=== PATIENT | female | born 1995 | race Caucasian/White ===

== ENCOUNTER 2020-11-02 15:58 | Emergency (ER) | payer BC ==
[2020-11-02] MEDS ORDERED: Lidocaine 2% Viscous Solution 15 ML Cup PO ONE (16:39)
[2020-11-02] MEDS ORDERED: Benzocaine 20% Topical Spray UD MUCMEM ONE (16:39)
--- NOTE | 2020-11-02 16:43 | EDM.PDOC ---
ED HPI GENERAL MEDICAL PROBLEM - General Chief Complaint: Skin Complaint Stated Complaint: POSSIBLE ABSCESS ON FACE Time Seen by Provider: 11/02/20 15:59 Source of Information: Reports: Patient History Limitations: Reports: No Limitations - History of Present Illness INITIAL COMMENTS - FREE TEXT/NARRATIVE: HISTORY AND PHYSICAL: History of present illness: Patient is a 24-year-old female presents emergency room today with concern of dental infection that she woke up with this morning. Patient states that she has had prior dental abscess and states that this is similar to her symptoms. Patient states that her wisdom tooth is growing in on the bottom and has been causing complications of the teeth in front of it and states that she just moved to [place] and plans to establish care with the dentist this week. Patient denies any other symptoms or concerns. Patient denies fever, chills, chest pain, shortness of breath, or cough. Denies headache, neck stiff ness, change in vision, syncope, or near syncope. Denies nausea, vomiting, abdominal pain, diarrhea, constipation, or dysuria. Has not noted any blood in urine or stool. Patient has been eating and drinking ap propriately. Review of systems: As per history of present illness and below otherwise all systems reviewed and negative. Past medical history: As per history of present illness and as reviewed below otherwise noncontributory. Surgical history: As per history of present illness and as reviewed below otherwise noncontributory. Social history: See social history for further information Family history: As per history of present illness and as reviewed below otherwise noncontributory. Physical exam: General: Patient is alert, oriented, and in no acute distress. Patient sitting comfortably on exam table. Vitals stable and reviewed by me. HEENT: Tooth #30 is eroded at the gumline with surrounding edema of the gumline without obvious drainable abscess at this time. The adjacent mandible to this tooth is mildly to moderately edematous with pain to palpation of this area. Otherwise, atraumatic, normocephalic, pupils equal and reactive bilaterally, negative for conjunctival pallor or scleral icterus, mucous membranes moist, TMs normal bilaterally, throat clear, neck supple, nontender, trachea midline. No drooling or trismus noted. No meningeal signs. No hot potato voice noted. Lungs: Clear to auscultation, breath sounds equal bilaterally, chest nontender. Heart: S1S2, regular rate and rhythm without overt murmur Abdomen: Soft, nondistended, nontender. Negative for masses or hepatosplenomegaly. Negative for costovertebral tenderness. Pelvis: Stable nontender. Genitourinary: Deferred. Rectal: Deferred. Skin: Intact, warm, dry. No lesions or rashes noted. Extremities: Atraumatic, negative for cords or calf pain. Neurovascular unremarkable. Neuro: Awake, alert, oriented. Cranial nerves II through XII unremarkable. Cerebellum unremarkable. Motor and sensory unremarkable throughout. Exam nonfocal. Notes: Signs and symptoms that were prompt return to the ED thoroughly discussed with patient. Discussed importance for follow-up with a dentist. Voices understanding and is agreeable to plan of care. Denies any further questions or concerns at this time. Diagnostics: None Therapeutics: Dental balls Prescription: Augmentin Impression: Dental abscess Plan: 1. Please take medication as prescribed. 2. Tylenol and/or ibuprofen as directed and as needed for pain management. 3. "Tooth Balls" have been given to you; apply along the gumline every 2-3 hours as needed. Do not swallow these; external use only. 4. Follow-up with a dentist for definitive care. Return to the ED as needed and as discussed. Definitive disposition and diagnosis as appropriate pending reevaluation and review of above. Right Lower Jaw Pain Score (Numeric/FACES): 5 - Related Data Allergies Allergy/AdvReac Type Severity Reaction Status Date / Time iodine Allergy Severe Anaphylactic Verified 11/02/20 16:28 Shock latex Allergy Mild Hives Verified 11/02/20 16:28 Home Meds: Home Meds Amoxicillin/Potassium Clav [Augmentin 875-125 Tablet] 1 each PO BID 10 Days #20 tablet 11/02/20 [Rx] Past Medical History HEENT History: Reports: None Cardiovascular History: Reports: None Respiratory History: Reports: None Gastrointestinal History: Reports: None Genitourinary History: Reports: None [employer] History: Reports: None Musculoskeletal History: Reports: None Neurological History: Reports: None Psychiatric History: Reports: None Endocrine/Metabolic History: Reports: None Hematologic History: Reports: None Immunologic History: Reports: None Oncologic (Cancer) History: Reports: None Dermatologic History: Reports: None - Infectious Disease History Infectious Disease History: Reports: None - Past Surgical History Head Surgeries/Procedures: Reports: None HEENT Surgical History: Reports: None GI Surgical History: Reports: None Female Surgical History: Reports: None Neurological Surgical History: Reports: None Social & Family History - Family History Family Medical History: No Pertinent Family History ED ROS GENERAL - Review of Systems Review Of Systems: Comprehensive ROS is negative, except as noted in HPI. ED EXAM, SKIN/RASH Exam: See Below (see dictation) Course - Vital Signs Last Recorded V/S: Last Vital Signs Temp 98.8 F 11/02/20 16:29 Pulse 95 11/02/20 16:29 Resp 18 11/02/20 16:29 BP 115/82 11/02/20 16:29 Pulse Ox 98 11/02/20 16:29 Departure - Departure Time of Disposition: 16:39 Disposition: Home, Self-Care 01 Clinical Impression: Dental infection - Discharge Information Prescriptions: Amoxicillin/Potassium Clav [Augmentin 875-125 Tablet] 1 each PO BID 10 Days #20 tablet Referrals: PCP,None [Primary Care Provider] - Additional Instructions: The following information is given to patients seen in the emergency department who are being discharged to home. This information is to outline your options for follow-up care. We provide all patients seen in our emergency department with a follow-up referral. The need for follow-up, as well as the timing and circumstances, are variable depending upon the specifics of your emergency department visit. If you don't have a primary care physician on staff, we will provide you with a referral. We always advise you to contact your personal physician following an emergency department visit to inform them of the circumstance of the visit and for follow-up with them and/or the need for any referrals to a consulting specialist. The emergency department will also refer you to a specialist when appropriate. This referral assures that you have the opportunity for follow-up care with a specialist. All of these measure are taken in an effort to provide you with optimal care, which includes your follow-up. Under all circumstances we always encourage you to contact your private physician who remains a resource for coordinating your care. When calling for follow-up care, please make the office aware that this follow-up is from your recent emergency room visit. If for any reason you are refused follow-up, please contact the [facility] Emergency Department at and asked to speak to the emergency department charge nurse. [facility] [address] [place] [address] [facility] [address] [place] [address] 1. Please take medication as prescribed. 2. Tylenol and/or ibuprofen as directed and as needed for pain management. 3. "Tooth Balls" have been given to you; apply along the gumline every 2-3 hours as needed. Do not swallow these; external use only. 4. Follow-up with a dentist for definitive care. Return to the ED as needed and as discussed. Sepsis Event Note (ED) - Evaluation Sepsis Screening Result: No Definite Risk - Focused Exam Vital Signs: Vital Signs Temp Pulse Resp BP Pulse Ox 11/02/20 16:29 98.8 F 95 18 115/82 98
== END 2020-11-02 16:48 | disposition home or self-care (01) ==
LOC: MW.ED 15:58
DX: K04.7 Periapical abscess without sinus (principal); Z91.040 Latex allergy status; Z91.048 Other nonmedicinal substance allergy status
CPT/HCPCS: 99282; A9270

== ENCOUNTER 2021-08-05 18:03 | Emergency (ER) | payer BC, OTHER | END 2021-08-05 18:53 | disposition home or self-care (01) | LOC: MW.ED 18:03 | DX: S60.221A Contusion of right hand, initial encounter (principal); Z91.041 Radiographic dye allergy status; Z91.040 Latex allergy status; W23.1XXA Caught, crushed, jammed, or pinched between stationary objects, initial encounter | CPT/HCPCS: 73130-26-RT; 73130-RT; 99283-25 ==

== ENCOUNTER 2021-10-30 12:10 | Emergency (ER) | payer BC ==
[2021-10-30] MEDS ORDERED: Diphtheria,Pertussis(Acell),Tetanus Vaccine 0.5 ML Syringe IM ONE (16:26)
[2021-10-30] MEDS ORDERED: Octyl 2-Cyanoacrylate 1 g/1 mL 1 APPLIC PEN TOP ONE (16:27)
== END 2021-10-30 17:19 | disposition home or self-care (01) ==
LOC: MW.ED 12:10
DX: S91.312A Laceration without foreign body, left foot, initial encounter (principal); Z23 Encounter for immunization; Z91.041 Radiographic dye allergy status; Z91.040 Latex allergy status; W25.XXXA Contact with sharp glass, initial encounter
CPT/HCPCS: 12001; 90471; 90715; 99282-25

== ENCOUNTER 2022-01-07 20:58 | Emergency (ER) | payer BC ==
[2022-01-07] MEDS ORDERED: Albuterol/Ipratropium 3.0-0.5 MG/3 ML Neb Soln INH ONE (21:45)
== END 2022-01-07 22:30 | disposition home or self-care (01) ==
LOC: MW.ED 20:58
DX: U07.1 COVID-19 (principal)
CPT/HCPCS: 71045; 71045-26; 99284; J7620-GY

== ENCOUNTER 2022-06-21 17:38 | Emergency (ER) | payer SELFPAY ==
[2022-06-21] MEDS ORDERED: Sodium Chloride 0.9% 1,000 ML IV ONE (17:51)
[2022-06-21 18:36] LABS: CARBON DIOXIDE,CO2 24.9 mmol/L (21.0-32.0); POTASSIUM,K 3.2 mmol/L (3.5-5.1)
[2022-06-21] MEDS ORDERED: Potassium Chloride 20 MEQ Tab.ER PO ONE (18:49)
[2022-06-21 18:50] LABS: CORONAVIRUS COVID-19 NAA NEGATIVE (NEGATIVE); INFLUENZA A NAA NEGATIVE (NEGATIVE); INFLUENZA B NAA NEGATIVE (NEGATIVE)
[2022-06-21] MEDS ORDERED: Lactated Ringers 1,000 ML IV ONE (20:06)
== END 2022-06-21 21:08 | disposition home or self-care (01) ==
LOC: MW.ED 17:38
DX: R00.2 Palpitations (principal); E87.6 Hypokalemia; Z91.040 Latex allergy status; Z91.041 Radiographic dye allergy status; Z86.16 Personal history of COVID-19; Z20.822 Contact with and (suspected) exposure to COVID-19
CPT/HCPCS: 0240U; 36415; 71045; 80053; 80307; 83735; 84443; 84484; 84703; 85025; 85379; 85610; 85730; 93005; 96360; 96361; 99285; A9270; J7030; J7120; 93010; 99284

== ENCOUNTER 2022-07-08 22:29 | Emergency (ER) | payer SELFPAY ==
[2022-07-09 00:45] LABS: CORONAVIRUS COVID-19 NAA NEGATIVE (NEGATIVE); INFLUENZA A NAA NEGATIVE (NEGATIVE); INFLUENZA B NAA NEGATIVE (NEGATIVE)
[2022-07-09] MEDS ORDERED: Acetaminophen 325 MG Tab PO ONE (00:52)
[2022-07-09] MEDS ORDERED: Ibuprofen 400 MG Tab PO ONE (00:52)
[2022-07-09] MEDS ORDERED: Dexamethasone 10 MG/ML SDV PO ONE (00:52)
[2022-07-09] MEDS ORDERED: Penicillin G Benzathine 1,200,000 Units/2 ML Syringe IM ONE (00:53)
== END 2022-07-09 02:00 | disposition home or self-care (01) ==
LOC: MW.ED 22:29
DX: J02.0 Streptococcal pharyngitis (principal); Z98.890 Other specified postprocedural states; Z86.16 Personal history of COVID-19; Z91.041 Radiographic dye allergy status; Z91.040 Latex allergy status; Z91.013 Allergy to seafood; Z20.822 Contact with and (suspected) exposure to COVID-19
CPT/HCPCS: 0240U; 96372; 99284; A9270-GY; J0561; J8540

== ENCOUNTER 2022-11-15 07:44 | Emergency (ER) | payer SELFPAY ==
[2022-11-15] MEDS ORDERED: Acetaminophen 325 MG Tab PO ONE (08:37)
[2022-11-15] MEDS ORDERED: Amoxicillin 500 MG Cap PO ONE (08:37)
[2022-11-15] MEDS ORDERED: Ibuprofen 400 MG Tab PO ONE (08:41)
== END 2022-11-15 09:13 | disposition home or self-care (01) ==
LOC: MW.ED 07:44
DX: K04.7 Periapical abscess without sinus (principal); F17.210 Nicotine dependence, cigarettes, uncomplicated; Z91.041 Radiographic dye allergy status; Z91.040 Latex allergy status; Z91.013 Allergy to seafood
CPT/HCPCS: 99283; A9270

== ENCOUNTER 2022-12-10 07:16 | Emergency (ER) | payer SELFPAY | END 2022-12-10 09:58 | disposition home or self-care (01) | LOC: MW.ED 07:16 | DX: S69.91XA Unspecified injury of right wrist, hand and finger(s), initial encounter (principal); Z86.16 Personal history of COVID-19; Z91.040 Latex allergy status; Z91.013 Allergy to seafood; Z91.041 Radiographic dye allergy status | CPT/HCPCS: 29125; 73130-26-RT; 73130-RT; 99283 ==

== ENCOUNTER 2023-01-23 11:24 | Emergency (ER) | payer SELFPAY ==
[2023-01-23] MEDS ORDERED: Lidocaine 1% 5 ML VIAL INJECT ONE (11:53)
== END 2023-01-23 12:23 | disposition home or self-care (01) ==
LOC: MW.ED 11:24
DX: S00.551A Superficial foreign body of lip, initial encounter (principal); I10 Essential (primary) hypertension; Z86.16 Personal history of COVID-19; Z91.040 Latex allergy status; Z91.041 Radiographic dye allergy status; Z91.013 Allergy to seafood; W45.8XXA Other foreign body or object entering through skin, initial encounter
CPT/HCPCS: 10120; 99282; 99283; J3490

== ENCOUNTER 2023-01-28 17:57 | Emergency (ER) | payer BC ==
[2023-01-28] MEDS ORDERED: Sodium Chloride 0.9% 10 ML Syringe FLUSH PRN (19:12)
[2023-01-28] MEDS ORDERED: Sodium Chloride 0.9% 2.5 ML Syringe FLUSH PRN (19:12)
[2023-01-28] MEDS ORDERED: Sodium Chloride 0.9% 1,000 ML IV STA (19:21)
[2023-01-28 19:29] LABS: BASOPHILS ABSOLUTE AUTO 0.04 K/uL (0.00-0.20); BASOPHILS PERCENT AUTO 0.5 % (0.0-1.0); EOSINOPHILS ABSOLUTE AUTO 0.21 K/uL (0.00-0.45); EOSINOPHILS PERCENT AUTO 2.5 % (0.0-6.0); HEMATOCRIT 34.2 % (37.0-47.0); HEMOGLOBIN 11.3 g/dL (12.0-16.0); IMMATURE GRAN ABSOLUTE AUTO 0.03 K/uL (0.00-0.05); IMMATURE GRAN PERCENT AUTO 0.4 % (0.0-0.4); LYMPHOCYTES ABSOLUTE AUTO 2.73 K/uL (1.00-4.80); LYMPHOCYTES PERCENT AUTO 33.1 % (24.0-44.0); MEAN CORPUSCULAR HEMOGLOBIN 27.2 pg (28.0-32.0); MEAN CORPUSCULAR VOLUME 82.4 fL (83.0-99.0); MEAN PLATELET VOLUME 9.8 fL (9.4-12.3); MONOCYTES ABSOLUTE AUTO 0.95 K/uL (0.00-0.80); MONOCYTES PERCENT AUTO 11.5 % (0.0-8.0); PLATELET COUNT,PLT 256 K/uL (150-400); RED BLOOD CELL COUNT 4.15 M/uL (4.10-5.30); WHITE BLOOD CELL COUNT,WBC 8.26 K/uL (3.9-11.3)
[2023-01-28 19:56] LABS: ALANINE AMINOTRANSFERASE,ALT 18 IU/L (14-63); ALBUMIN 3.7 g/dL (3.4-5.0); ALKALINE PHOSPHATASE 66 U/L (46-116); ASPARTATE AMNIOTRANSFERASE,AST 12 IU/L (15-37); BILIRUBIN TOTAL 0.3 mg/dL (0.2-1.0); BLOOD UREA NITROGEN,BUN 13 mg/dL (7.0-18.0); CALCIUM 8.9 mg/dL (8.5-10.1); CARBON DIOXIDE,CO2 25.5 mmol/L (21.0-32.0); CHLORIDE,CL 103 mmol/L (98-107); CREATININE 0.7 mg/dL (0.6-1.0); EST CRCL DRUG DOSING (CG) 85.18 mL/min; GLUCOSE RANDOM 68 mg/dL (74-106); LIPASE 39 U/L (16-77); MAGNESIUM 1.9 mg/dL (1.8-2.4); POTASSIUM,K 3.6 mmol/L (3.5-5.1); PROTEIN TOTAL,TP 7.4 g/dL (6.4-8.2); SODIUM,NA 139 mmol/L (136-145)
[2023-01-28 20:15] LABS: ESTIMATED GFR 120 mL/min (>60)
== END 2023-01-28 22:19 | disposition home or self-care (01) ==
LOC: MW.ED 17:57
DX: R05.9 Cough, unspecified (principal); I10 Essential (primary) hypertension; Z91.013 Allergy to seafood; Z91.041 Radiographic dye allergy status; Z91.040 Latex allergy status
CPT/HCPCS: 36415; 71046; 80053; 83690; 83735; 84484; 85025; 85379; 93005; 99285; J3490; J7030; 93010; 99283

== ENCOUNTER 2023-02-12 18:59 | Emergency (ER) | payer BC ==
[2023-02-12] MEDS ORDERED: Doxycycline 100 MG Cap PO ONE (19:38)
== END 2023-02-12 19:50 | disposition home or self-care (01) ==
LOC: MW.ED 18:59
DX: L08.89 Other specified local infections of the skin and subcutaneous tissue (principal); I10 Essential (primary) hypertension; Z86.16 Personal history of COVID-19; Z90.49 Acquired absence of other specified parts of digestive tract; Z91.040 Latex allergy status; Z91.041 Radiographic dye allergy status; Z91.013 Allergy to seafood
CPT/HCPCS: 99283; A9270

== ENCOUNTER 2023-02-20 14:26 | Emergency (ER) | payer BC ==
[2023-02-20 15:47] LABS: CORONAVIRUS COVID-19 NAA NEGATIVE (NEGATIVE); INFLUENZA A NAA NEGATIVE (NEGATIVE); INFLUENZA B NAA NEGATIVE (NEGATIVE); RESPIRATORY SYNCYTIAL VIR NAA NEGATIVE (NEGATIVE)
== END 2023-02-20 17:02 | disposition home or self-care (01) ==
LOC: MW.ED 14:26
DX: J40 Bronchitis, not specified as acute or chronic (principal); I10 Essential (primary) hypertension; Z88.8 Allergy status to other drugs, medicaments and biological substances; Z91.040 Latex allergy status; Z91.013 Allergy to seafood; Z79.899 Other long term (current) drug therapy; Z86.16 Personal history of COVID-19; Z90.49 Acquired absence of other specified parts of digestive tract; Z20.822 Contact with and (suspected) exposure to COVID-19
CPT/HCPCS: 0241U; 87651; 99283

== ENCOUNTER 2023-03-27 14:15 | Emergency (ER) | payer BC ==
[2023-03-27] MEDS ORDERED: Acetaminophen 500 MG Tab PO STA (16:14)
[2023-03-27] MEDS ORDERED: oxyCODONE 5 MG Tab PO STA (16:14)
== END 2023-03-27 19:13 | disposition home or self-care (01) ==
LOC: MW.ED 14:15
DX: S87.81XA Crushing injury of right lower leg, initial encounter (principal); I10 Essential (primary) hypertension; Z86.16 Personal history of COVID-19; Z90.49 Acquired absence of other specified parts of digestive tract; Z91.041 Radiographic dye allergy status; Z91.040 Latex allergy status; Z91.013 Allergy to seafood; W23.0XXA Caught, crushed, jammed, or pinched between moving objects, initial encounter
CPT/HCPCS: 73552; 73590; 73630; 99283; A9270

== ENCOUNTER 2023-08-13 21:16 | Emergency (ER) | payer BC | END 2023-08-14 00:27 | disposition home or self-care (01) | LOC: MW.ED 21:16 | DX: J00 Acute nasopharyngitis [common cold] (principal); I10 Essential (primary) hypertension; Z86.16 Personal history of COVID-19; Z91.040 Latex allergy status; Z91.013 Allergy to seafood; Z88.8 Allergy status to other drugs, medicaments and biological substances; Z90.49 Acquired absence of other specified parts of digestive tract | CPT/HCPCS: 87651-QW; 99283; U0002 ==

== ENCOUNTER 2023-08-21 18:23 | Emergency (ER) | payer BC ==
[2023-08-21 19:16] LABS: CORONAVIRUS COVID-19 NAA NEGATIVE (NEGATIVE); INFLUENZA A NAA NEGATIVE (NEGATIVE); INFLUENZA B NAA NEGATIVE (NEGATIVE); RESPIRATORY SYNCYTIAL VIR NAA NEGATIVE (NEGATIVE)
== END 2023-08-21 19:52 | disposition home or self-care (01) ==
LOC: MW.ED 18:23
DX: J40 Bronchitis, not specified as acute or chronic (principal); I10 Essential (primary) hypertension; Z79.899 Other long term (current) drug therapy; Z91.041 Radiographic dye allergy status; Z91.040 Latex allergy status; Z91.013 Allergy to seafood; Z75.8 Other problems related to medical facilities and other health care
CPT/HCPCS: 0241U; 71046; 99283

== ENCOUNTER 2023-11-09 09:30 | Emergency (ER) | payer BC ==
[2023-11-09] MEDS: SUMAtriptan 6 MG/0.5 ML SDV SUBCUT ONE (09:50)
[2023-11-09] MEDS: Metoclopramide 10 MG/2 ML SDV IVPUSH ONE (10:24)
[2023-11-09] MEDS: Sodium Chloride 0.9% 1,000 ML IV ONE (10:25)
[2023-11-09] MEDS: Amoxicillin/Clavulanate K 875-125 MG Tab PO ONE (10:39)
[2023-11-09] MEDS: Lidocaine 2% Viscous Solution 15 ML UD PO ONE (10:39)
== END 2023-11-09 11:43 | disposition home or self-care (01) ==
LOC: MW.ED 09:30
DX: G43.909 Migraine, unspecified, not intractable, without status migrainosus (principal); I10 Essential (primary) hypertension; Z90.49 Acquired absence of other specified parts of digestive tract; F17.210 Nicotine dependence, cigarettes, uncomplicated; Z91.013 Allergy to seafood; Z91.040 Latex allergy status; Z88.8 Allergy status to other drugs, medicaments and biological substances
CPT/HCPCS: 96361; 96372; 96374; 99283; A9270; J2765; J3030; J7030

== ENCOUNTER 2024-01-30 09:41 | Emergency (ER) | payer BC ==
[2024-01-30] MEDS: Lidocaine 1% 5 ML VIAL INJECT ONE (10:02)
[2024-01-30] MEDS: Cephalexin 500 MG Cap PO ONE (10:36)
[2024-01-30] MEDS: Ibuprofen 600 MG Tab PO ONE (10:36)
== END 2024-01-30 10:43 | disposition home or self-care (01) ==
LOC: MW.ED 09:41
DX: S01.81XA Laceration without foreign body of other part of head, initial encounter (principal); L08.9 Local infection of the skin and subcutaneous tissue, unspecified; I10 Essential (primary) hypertension; F17.210 Nicotine dependence, cigarettes, uncomplicated; Z75.8 Other problems related to medical facilities and other health care; Z91.013 Allergy to seafood; Z91.040 Latex allergy status; Z91.041 Radiographic dye allergy status; Z79.899 Other long term (current) drug therapy; W23.0XXA Caught, crushed, jammed, or pinched between moving objects, initial encounter; Y99.0 Civilian activity done for income or pay
CPT/HCPCS: 10120; 99283; A9270; J3490

== ENCOUNTER 2024-02-12 12:23 | Emergency (ER) | payer BC | END 2024-02-12 16:08 | disposition home or self-care (01) | LOC: MW.ED 12:23 | DX: J06.9 Acute upper respiratory infection, unspecified (principal); I10 Essential (primary) hypertension; Z90.49 Acquired absence of other specified parts of digestive tract; Z91.041 Radiographic dye allergy status; Z91.013 Allergy to seafood; Z91.040 Latex allergy status; Z79.899 Other long term (current) drug therapy; Z75.8 Other problems related to medical facilities and other health care | CPT/HCPCS: 71046; 71046-26; 87428-QW; 87651-QW; 99283; 99284 ==

== ENCOUNTER 2024-05-08 16:03 | Emergency (ER) | payer BC ==
[2024-05-08] MEDS: Benzocaine 20% Topical Spray UD MUCMEM ONE (17:11)
[2024-05-08] MEDS: Amoxicillin/Clavulanate K 875-125 MG Tab PO ONE (17:11)
[2024-05-08] MEDS: Lidocaine 2% Viscous Solution 15 ML UD PO ONE (17:11)
== END 2024-05-08 17:14 | disposition home or self-care (01) ==
LOC: MW.ED 16:03
DX: K04.7 Periapical abscess without sinus (principal); I10 Essential (primary) hypertension; Z90.49 Acquired absence of other specified parts of digestive tract; Z91.048 Other nonmedicinal substance allergy status; Z91.040 Latex allergy status; Z91.013 Allergy to seafood; Z75.8 Other problems related to medical facilities and other health care
CPT/HCPCS: 99282; A9270

== ENCOUNTER 2024-05-21 11:40 | Emergency (ER) | payer SELFPAY ==
[2024-05-21] MEDS: Ketorolac 30 MG/ML SDV IM STA (12:10)
== END 2024-05-21 13:36 | disposition home or self-care (01) ==
LOC: MW.ED 11:40
DX: M79.604 Pain in right leg (principal); I10 Essential (primary) hypertension; Z90.49 Acquired absence of other specified parts of digestive tract; Z88.4 Allergy status to anesthetic agent; Z91.040 Latex allergy status; Z91.013 Allergy to seafood; Z79.899 Other long term (current) drug therapy; Z75.8 Other problems related to medical facilities and other health care
CPT/HCPCS: 93971; 96372; 99283; J1885